=== PATIENT | female | born 1945 | race Caucasian/White ===

== ENCOUNTER 2018-07-14 11:29 | Observation (INO) | payer MEDICARE, OTHER ==
[~2018-07-14] VITALS: Ht 154.9 cm; Wt 87.1 kg
--- NOTE | 2018-07-14 13:18 | ERD ---
ER Documentation Chief Complaint Chief Complaint SENT BY PCP -- CHEST PAIN HPI This 72-year-old female with a history of hypertension, hyperlipidemia, diabetes who presents for evaluation of 2 days of intermittent chest pain. Patient went to an urgent care today, where they noted an abnormal EKG, which showed an inferior suppression in lead II, and recommended that she present to the ED for evaluation of this. Her pain lasts minutes and self resolves. She has no prior history of AR, and she states that she thinks that her heart was evaluated about 20 years ago but has not had any recent testing. She denies fever, she has had no leg swelling, no hemoptysis. ROS All systems reviewed and are negative except as per history of present illness. Allergies Allergies: Coded Allergies: No Known Allergies (Verified Allergy, 12/01/11) PER PT VERIFIED. PMhx/Soc History of Surgery: Yes (appendectomy, hysterectomy, 2 hernia repairs.) Anesthesia Reaction: No Hx Neurological Disorder: No Hx Respiratory Disorders: Yes (EPISODE OF ASTHMA) Hx Cardiac Disorders: Yes (HTN, cholesterol ) Hx Psychiatric Problems: No Hx Miscellaneous Medical Probl: Yes (DM, anemia, gastritis, high cholesterol ) Hx Alcohol Use: No Hx Substance Use: No Hx Tobacco Use: No Smoking Status: Never smoker Physical Exam Vitals Vital Signs Date Temp Pulse Resp B/P (MAP) Pulse Ox O2 O2 Flow FiO2 Time Delivery Rate 07/14/18 98.2 82 22 189/82 99 11:32 (117) Physical Exam Const: No acute distress Head: Atraumatic Eyes: Normal Conjunctiva ENT: Normal External Ears, Nose and Mouth. Neck: Full range of motion. No meningismus. Resp: Clear to auscultation bilaterally Cardio: Regular rate and rhythm, no murmurs Abd: Soft, non tender, non distended. Normal bowel sounds Skin: No petechiae or rashes Back: No midline or flank tenderness Ext: No cyanosis, or edema Neur: Awake and alert Psych: Normal Mood and Affect Result Diagram: 07/14/18 1251 07/14/18 1251 Results 24 hrs Laboratory Tests Test 07/14/18 12:51 White Blood Count 8.4 10^3/ul Red Blood Count 3.92 10^6/ul Hemoglobin 12.1 g/dl Hematocrit 36.7 % Mean Corpuscular Volume 93.6 fl Mean Corpuscular Hemoglobin 30.9 pg Mean Corpuscular Hemoglobin Concent 33.0 g/dl Red Cell Distribution Width 11.9 % Platelet Count 139 10^3/UL Mean Platelet Volume 12.6 fl Immature Granulocytes % 0.400 % Neutrophils % 62.5 % Lymphocytes % 24.9 % Monocytes % 6.6 % Eosinophils % 5.1 % Basophils % 0.5 % Nucleated Red Blood Cells % 0.0 /100WBC Immature Granulocytes # 0.030 10^3/ul Neutrophils # 5.2 10^3/ul Lymphocytes # 2.1 10^3/ul Monocytes # 0.6 10^3/ul Eosinophils # 0.4 10^3/ul Basophils # 0.0 10^3/ul Nucleated Red Blood Cells # 0.0 10^3/ul Sodium Level 139 mmol/L Potassium Level 4.5 mmol/L Chloride Level 102 mmol/L Carbon Dioxide Level 27 mmol/L Anion Gap 10 Blood Urea Nitrogen 24 mg/dl Creatinine 0.82 mg/dl Est Glomerular Filtrat Rate mL/min mL/min Glucose Level 335 mg/dl Calcium Level 9.5 mg/dl Total Bilirubin 0.2 mg/dl Direct Bilirubin 0.00 mg/dl Indirect Bilirubin 0.2 mg/dl Aspartate Amino Transf (AST/SGOT) 38 IU/L Alanine Aminotransferase (ALT/SGPT) 23 IU/L Alkaline Phosphatase 53 IU/L Troponin I < 0.012 ng/ml B-Type Natriuretic Peptide 331 PG/ML Total Protein 7.6 g/dl Albumin 3.9 g/dl Globulin 3.70 g/dl Albumin/Globulin Ratio 1.05 Procedures/MDM 72-year-old female presents for relation of chest pain. On exam patient is well-appearing nontoxic, her chest pain stabilized, I reviewed her EKG and also repeated here, given that I do not have a comparison EKG, it is not certain that this EKG abnormality is new. Thus, I considered acute coronary syndrome, her initial troponin was negative. She was noted to be hyperglycemic, with a blood sugar of 335, however she had no evidence of DKA. After discussion with the patient and her daughter, shared decision making was made to admit for further evaluation, the patient agreed to this. She will be admitted to observation. EKG: Rate/Rhythm: Normal Sinus Rhythm QRS, ST, T-waves: ST depression, approximately 1 mm and in lead II, otherwise no changes consistent w/ acute ischemia Impression: No evidence of ischemia or arrhythmia Accepting Care Team: Current data and ongoing care discussed. Primary: Etienne Consulting: None Outstanding Data: none Departure Diagnosis: Primary Impression: Chest pain Chest pain type: unspecified Qualified Codes: R07.9 - Chest pain, unspecified Condition: Stable FABIOLA BRODY MD Jul 14, 2018 13:18
[2018-07-14] MEDS ORDERED: LORAZEPAM 1 MG TAB PO ONE (14:30)
--- NOTE | 2018-07-14 14:38 | HP ---
Date/Time of Note Date/Time of Note DATE: 07/14/18 TIME: 14:38 Assessment/Plan VTE Prophylaxis Pharmacological prophylaxis: LMWH Lines/Catheters IV [facility] Saline Lock Assessment/Plan Hospital Course 72-year-old female with comorbidities including hypertension, diabetes mellitus, obesity, arthritis, dyslipidemia, and gastritis who went to the patient's primary care physician because of chest pain. The patient was referred to the emergency room by the patient's primary care physician. The patient will be admitted to inpatient setting for further treatment and evaluation. 1. Chest pain. -Etiology unclear. -Rule out ACS versus musculoskeletal versus others. Less likely PE, provided the patient has adequate oxygen saturation. -Continue aspirin. -Trend troponins. -Obtain cardiology consult -Obtain 2D echocardiogram to evaluate left ventricular ejection fraction and evaluate for any wall motion abnormalities. 2. Hypertension. -Will start the patient on appropriate antihypertensives. 3. Diabetes mellitus type 2. -Start the patient on sliding scale insulin along with pre-meal insulin and basal insulin. -Obtain hemoglobin A1c to evaluate the blood glucose control over the past few weeks. 3. Dyslipidemia. -Continue the patient on statins. 4. Gastritis -Continue the patient on proton pump inhibitors. 5. Obesity. -BMI of 32 . -Weight reduction would be advised. Plan: The patient will be admitted to inpatient telemetry floor. The patient will be started on a carbohydrate controlled as tolerated diet. The patient will be started on DVT prophylaxis and gastrointestinal prophylaxis. The patient will remain a full code. Activities will be as tolerated. The rest of the patient's management will be based on the clinical course, inputs from consultants, and the results of diagnostic studies. Based on the patient's clinical presentation, she most probably requires at least 1 midnight's stay for further management and evaluation of her clinical presentation. The patient was seen in collaboration with Dr. Clifton. Result Diagram: 07/14/18 1251 07/14/18 1251 Results 24hrs Laboratory Tests Test 07/14/18 12:51 White Blood Count 8.4 Red Blood Count 3.92 L Hemoglobin 12.1 Hematocrit 36.7 L Mean Corpuscular Volume 93.6 Mean Corpuscular Hemoglobin 30.9 Mean Corpuscular Hemoglobin Concent 33.0 Red Cell Distribution Width 11.9 Platelet Count 139 L Mean Platelet Volume 12.6 H Immature Granulocytes % 0.400 Neutrophils % 62.5 Lymphocytes % 24.9 Monocytes % 6.6 Eosinophils % 5.1 Basophils % 0.5 Nucleated Red Blood Cells % 0.0 Immature Granulocytes # 0.030 Neutrophils # 5.2 Lymphocytes # 2.1 Monocytes # 0.6 Eosinophils # 0.4 Basophils # 0.0 Nucleated Red Blood Cells # 0.0 Sodium Level 139 Potassium Level 4.5 Chloride Level 102 Carbon Dioxide Level 27 Anion Gap 10 Blood Urea Nitrogen 24 H Creatinine 0.82 Est Glomerular Filtrat Rate mL/min Glucose Level 335 H Calcium Level 9.5 Total Bilirubin 0.2 Direct Bilirubin 0.00 Indirect Bilirubin 0.2 Aspartate Amino Transf (AST/SGOT) 38 Alanine Aminotransferase (ALT/SGPT) 23 Alkaline Phosphatase 53 Troponin I < 0.012 B-Type Natriuretic Peptide 331 H Total Protein 7.6 Albumin 3.9 Globulin 3.70 H Albumin/Globulin Ratio 1.05 HPI/ROS Admit Date/Time Admit Date/Time Hx of Present Illness Reason for admission: Chest pain. Consultants 1. Mauricio Cat DO, Cardiology. This is a 72-year-old female with past medical history of hypertension, diabetes mellitus, obesity, arthritis, dyslipidemia, and gastritis. The patient came to the emergency room referred by her primary care physician because of chest pain. The patient verbalized that she had a episode of chest pain on 07/12/2018 that lasted for approximately half of the day. The patient had a second episode of chest pain on 07/14/2018. The patient verbalized that the the chest pain comes on randomly. The patient verbalized the chest pain as on the left side with no radiation. The patient denied any associated dyspnea, diaphoresis, nausea, or vomiting. The patient denied any fevers, chills, or cough. In the emergency room, the patient's initial set of troponins were negative. The patient had a blood pressure 189/82. The patient's chest x-ray was negative for any acute findings. The patient was anxious and therefore was given a single dose of Ativan. ROS Constitutional: no complaints Eyes: no complaints ENT: no complaints Respiratory: no complaints Cardiovascular: chest pain Gastrointestinal: no complaints Genitourinary: no complaints Musculoskeletal: no complaints Skin: no complaints Neurologic: no complaints Endocrine: no complaints Lymphatic: no complaints Psychological: anxiety Immunologic: no complaints PMH/Family/Social Past Medical History 1. Hypertension. 2. Diabetes mellitus type 2. 3. Obesity. 4. Arthritis. 5. Dyslipidemia. 6. Gastritis. Coded Allergies: No Known Allergies (Verified Allergy, Unknown, 07/14/18) PER PT VERIFIED. Past Surgical History 1. Appendectomy. 2. Hysterectomy with bilateral salpingo-oophorectomy. Social History The patient lives at home with her family. Alcohol Use: none Smoking Status: Never smoker Drug Use: none Exam/Review of Systems Vital Signs Vitals Vital Signs Date Temp Pulse Resp B/P (MAP) Pulse Ox O2 O2 Flow FiO2 Time Delivery Rate 07/14/18 79 18 158/63 98 Room Air 14:19 (94) 07/14/18 98.2 11:32 Exam Exam General: Obese, 72 year-old female lying in bed in no apparent distress. HEENT: Normocephalic, atraumatic. Eyes: Anicteric sclerae, conjunctivae clear. ENT: Nasal septum midline, oral mucosa moist. Neck supple. Respiratory: Bilaterally clear breath sounds. No use of accessory muscles of respiration. No adventitious breath sounds. Cardiovascular: S1, S2 heard. Regular rate and rhythm. Abdomen: Soft, nontender, and nondistended. Bowel sounds positive in all 4 quadrants. Genitourinary: Deferred. Extremities: No cyanosis, no clubbing, no edema. Peripheral pulses palpable. Neurologic: Cranial nerves II through XII grossly intact. The patient is awake, alert, and oriented. Skin: Normal skin turgor. No skin rashes. Additional Comments CXR IMPRESSION: No acute disease. Calcified aorta consistent with atherosclerotic disease. ELIJAH NAPOLES NP Jul 14, 2018 14:38
[2018-07-14] MEDS ORDERED: INSU100I12 SQ (14:47)
[2018-07-14] MEDS ORDERED: LISI40TA3 PO (14:47)
[2018-07-14] MEDS ORDERED: INSU300I SQ (14:48)
[2018-07-14] MEDS ORDERED: LORA10TA3 PO (14:49)
[2018-07-14] MEDS ORDERED: HYDR25TA6 PO (14:49)
[2018-07-14] MEDS ORDERED: GABA300C16 PO (14:50)
[2018-07-14] MEDS ORDERED: CHLO25TA2 PO (14:50)
[2018-07-14] MEDS ORDERED: ASPI81TA52 PO (14:51)
[2018-07-14] MEDS ORDERED: SIMV40TA2 PO (14:51)
[2018-07-14] MEDS ORDERED: NITROGLYCERIN (SL) 0.4 MG TAB SL PRN (15:00)
[2018-07-14] MEDS ORDERED: NACL 0.9% 3 ML SYG IV SCH (15:00)
[2018-07-14] MEDS ORDERED: LORAZEPAM 2 MG INJ IV PRN (15:00)
[2018-07-14] MEDS ORDERED: ACETAMINOPHEN 325 MG TAB PO PRN (15:00)
[2018-07-14] MEDS ORDERED: ASPIRIN 81 MG TAB PO ONE (15:30)
[2018-07-14] MEDS ORDERED: hydrALAzine 20 MG INJ IV PRN (15:30)
[2018-07-14] MEDS ORDERED: GLUCAGON 1 MG INJ IM PRN (16:30)
[2018-07-14] MEDS ORDERED: DEXTROSE 50% 50 ML SYRINGE IV PRN ×2 (16:30)
[2018-07-14] MEDS ORDERED: GLUCOSE GEL 15 GRAM TUBE PO PRN ×2 (16:30)
[2018-07-14] MEDS ORDERED: GLUCOSE GEL 15 GRAM TUBE BUCCAL PRN (16:30)
[2018-07-14 17:02] VITALS: Ht 154.9 cm; Wt 87.1 kg
--- NOTE | 2018-07-14 17:27 | CONS ---
Assessment/Plan Assessment/Plan Hospital Course (Demo Recall) Chest pain Abnormal ECG Diabetes Hypertension Dyslipidemia -Patient presents with intermittent chest pain off and on over the past few days which is nonexertional with no associated shortness of breath. -Initial cardiac enzymes are negative, ECG with ST segment abnormalities -We will obtain serial cardiac enzymes, echocardiogram, continue aspirin and statin therapy, blood pressure control -Patient with atypical symptoms but abnormal ECG, would consider further ischemic workup Consultation Date/Type/Reason Admit Date/Time Type of Consult Cardiology Reason for Consultation Chest pain Date/Time of Note DATE: 07/14/18 TIME: 17:21 Hx of Present Illness This is an 82-year-old female with past medical history of diabetes, hypertension, presents with chest pain. Chest pain happens at sporadic times over the past few days. Exertion does not worsen or improve symptoms. She denies any shortness of breath and it happens. She has a hard time describing the type of chest pain. She points to point to the left side of her chest and her left shoulder. She denies any chest pain currently. Patient denies any cardiac history. She denies any fevers or chills. 12 point review of systems was performed with all pertinent positives and negatives mentioned above and all else is negative Past Medical History Medical History: diabetes, high cholesterol, hypertension Home Meds Reported Medications Aspirin (Low Dose Aspirin) 81 Mg Tablet.dr, 81 MG PO DAILY, #30 TAB 07/14/18 Simvastatin* (Zocor*) 40 Mg Tablet, 40 MG PO QHS, #30 TAB 07/14/18 Gabapentin* (Gabapentin*) 300 Mg Capsule, 300 MG PO QHS, #60 CAP 07/14/18 Chlorthalidone* (Chlorthalidone*) 25 Mg Tablet, 25 MG PO DAILY, TAB 07/14/18 Loratadine* (Loratadine*) 10 Mg Tablet, 10 MG PO DAILY, #30 TAB 07/14/18 Hydrochlorothiazide* (Hydrochlorothiazide*) 25 Mg Tab, 25 MG PO DAILY, #30 TAB 07/14/18 Insulin Glargine,Hum.rec.anlog (Víctor oClby) 300 Unit/1 Ml Insuln.pen, 65 UNIT SQ QHS, EA 07/14/18 Lisinopril* (Lisinopril*) 40 Mg Tablet, 40 MG PO DAILY, #30 TAB 07/14/18 Insulin Lispro (Humalog Kwikpen U-100) 100 Unit/1 Ml Insuln.pen, 55 UNIT SQ BID, EA 07/14/18 Medications Current Medications IV Flush (NS 3 ml) 3 ml PER PROTOCOL IV ; Start 07/14/18 at 15:00 Lorazepam (Ativan) 0.5 mg Q6H PRN IV .ANXIETY; Start 07/14/18 at 15:00 Nitroglycerin (Nitroglycerin (Sl Tab) 0.4 Mg) 1 tab Q5M PRN SL .CHEST PAIN; Start 07/14/18 at 15:00 Acetaminophen (Tylenol Tab) 650 mg Q6H PRN PO .PAIN 1-3 OR TEMP; Start 07/14/18 at 15:00 Enoxaparin Sodium (Lovenox) 40 mg DAILY SC ; Start 07/15/18 at 09:00 Aspirin (Halfprin) 81 mg DAILY PO ; Start 07/15/18 at 09:00 Lisinopril (Zestril) 5 mg DAILY PO ; Start 07/15/18 at 09:00 Atorvastatin Calcium (Lipitor) 40 mg HS PO ; Start 07/14/18 at 21:00 Insulin Glargine (Lantus) 15 units DAILY@2000 SC ; Start 07/14/18 at 20:00 Insulin Aspart (Novolog Insulin Pen) 5 unit WITH MEALS SC ; Start 07/14/18 at 18:00 Insulin Aspart (Novolog Insulin Pen) NOVOLOG *MILD* ALGORITHM WITH MEALS BEDTIME SC ; Start 07/14/18 at 18:00 Hydralazine HCl (Apresoline) 10 mg Q6H PRN IV SBP>160; Start 07/14/18 at 15:30 Pantoprazole (Protonix Tab) 40 mg DAILY@06 PO ; Start 07/15/18 at 06:00 Miscellaneous Information 1 ea NOTE XX ; Start 07/14/18 at 16:30 Glucose (Glutose) 15 gm Q15M PRN PO DECREASED GLUCOSE; Start 07/14/18 at 16:30 Glucose (Glutose) 22.5 gm Q15M PRN PO DECREASED GLUCOSE; Start 07/14/18 at 16:30 Dextrose (D50w Syringe) 25 ml Q15M PRN IV DECREASED GLUCOSE; Start 07/14/18 at 16:30 Dextrose (D50w Syringe) 50 ml Q15M PRN IV DECREASED GLUCOSE; Start 07/14/18 at 16:30 Glucagon (Glucagen) 1 mg Q15M PRN IM DECREASED GLUCOSE; Start 07/14/18 at 16:30 Glucose (Glutose) 15 gm Q15M PRN BUCCAL DECREASED GLUCOSE; Start 07/14/18 at 16:30 Allergies: Coded Allergies: No Known Allergies (Verified Allergy, Unknown, 07/14/18) PER PT VERIFIED. Past Surgical History Past Surgical Hx: other (Hernia surgery) Family History Significant Family History: no pertinent family hx Social History Alcohol Use: none Smoking Status: Never smoker Drug Use: none Exam/Review of Systems Vital Signs Vitals Vital Signs Date Temp Pulse Resp B/P (MAP) Pulse Ox O2 O2 Flow FiO2 Time Delivery Rate 07/14/18 98.5 84 24 156/64 98 Room Air 16:42 (94) Exam Constitutional: alert, oriented (No apparent distress) Head: normocephalic Respiratory: clear to auscultation, normal air movement Cardiovascular: regular rate and rhythm (S1-S2 heard) Gastrointestinal: soft, non-tender, bowel sounds Extremities: other (No significant edema) Labs Result Diagram: 07/14/18 1251 07/14/18 1251 Results 24hrs Laboratory Tests Test 07/14/18 12:51 White Blood Count 8.4 Red Blood Count 3.92 L Hemoglobin 12.1 Hematocrit 36.7 L Mean Corpuscular Volume 93.6 Mean Corpuscular Hemoglobin 30.9 Mean Corpuscular Hemoglobin Concent 33.0 Red Cell Distribution Width 11.9 Platelet Count 139 L Mean Platelet Volume 12.6 H Immature Granulocytes % 0.400 Neutrophils % 62.5 Lymphocytes % 24.9 Monocytes % 6.6 Eosinophils % 5.1 Basophils % 0.5 Nucleated Red Blood Cells % 0.0 Immature Granulocytes # 0.030 Neutrophils # 5.2 Lymphocytes # 2.1 Monocytes # 0.6 Eosinophils # 0.4 Basophils # 0.0 Nucleated Red Blood Cells # 0.0 Sodium Level 139 Potassium Level 4.5 Chloride Level 102 Carbon Dioxide Level 27 Anion Gap 10 Blood Urea Nitrogen 24 H Creatinine 0.82 Est Glomerular Filtrat Rate mL/min Glucose Level 335 H Calcium Level 9.5 Total Bilirubin 0.2 Direct Bilirubin 0.00 Indirect Bilirubin 0.2 Aspartate Amino Transf (AST/SGOT) 38 Alanine Aminotransferase (ALT/SGPT) 23 Alkaline Phosphatase 53 Troponin I < 0.012 B-Type Natriuretic Peptide 331 H Total Protein 7.6 Albumin 3.9 Globulin 3.70 H Albumin/Globulin Ratio 1.05 Imaging Imaging ECG demonstrates sinus rhythm 88 bpm, poor R wave progression, ST abnormalities in inferior and lateral leads Medications Medications Current Medications IV Flush (NS 3 ml) 3 ml PER PROTOCOL IV ; Start 07/14/18 at 15:00 Lorazepam (Ativan) 0.5 mg Q6H PRN IV .ANXIETY; Start 07/14/18 at 15:00 Nitroglycerin (Nitroglycerin (Sl Tab) 0.4 Mg) 1 tab Q5M PRN SL .CHEST PAIN; Start 07/14/18 at 15:00 Acetaminophen (Tylenol Tab) 650 mg Q6H PRN PO .PAIN 1-3 OR TEMP; Start 07/14/18 at 15:00 Enoxaparin Sodium (Lovenox) 40 mg DAILY SC ; Start 07/15/18 at 09:00 Aspirin (Halfprin) 81 mg DAILY PO ; Start 07/15/18 at 09:00 Lisinopril (Zestril) 5 mg DAILY PO ; Start 07/15/18 at 09:00 Atorvastatin Calcium (Lipitor) 40 mg HS PO ; Start 07/14/18 at 21:00 Insulin Glargine (Lantus) 15 units DAILY@2000 SC ; Start 07/14/18 at 20:00 Insulin Aspart (Novolog Insulin Pen) 5 unit WITH MEALS SC ; Start 07/14/18 at 18:00 Insulin Aspart (Novolog Insulin Pen) NOVOLOG *MILD* ALGORITHM WITH MEALS BEDTIME SC ; Start 07/14/18 at 18:00 Hydralazine HCl (Apresoline) 10 mg Q6H PRN IV SBP>160; Start 07/14/18 at 15:30 Pantoprazole (Protonix Tab) 40 mg DAILY@06 PO ; Start 07/15/18 at 06:00 Miscellaneous Information 1 ea NOTE XX ; Start 07/14/18 at 16:30 Glucose (Glutose) 15 gm Q15M PRN PO DECREASED GLUCOSE; Start 07/14/18 at 16:30 Glucose (Glutose) 22.5 gm Q15M PRN PO DECREASED GLUCOSE; Start 07/14/18 at 16:30 Dextrose (D50w Syringe) 25 ml Q15M PRN IV DECREASED GLUCOSE; Start 07/14/18 at 16:30 Dextrose (D50w Syringe) 50 ml Q15M PRN IV DECREASED GLUCOSE; Start 07/14/18 at 16:30 Glucagon (Glucagen) 1 mg Q15M PRN IM DECREASED GLUCOSE; Start 07/14/18 at 16:30 Glucose (Glutose) 15 gm Q15M PRN BUCCAL DECREASED GLUCOSE; Start 07/14/18 at 16:30 Mauricio Cat DO Jul 14, 2018 17:27
[2018-07-14 17:30] VITALS: BP 154/70; PULSE 80; RESP 20
--- NOTE | 2018-07-14 17:33 | RADRPT ---
Echocardiogram Report Patient Name: Eunice MARIEnt ID: [id number] : 1945 (72y 10m)Study Date: 07/14/2018 3:17:50 PM Gender: FAccession #: [id number] Tech: Maryanne [facility] Location: [facility] Ref.Physician: ELIJAH NAPOLES Height(Cm): BSA: Weight(Kg): Quality: AdequateAccount #: Procedures: Echocardiographic Report: Transthoracic echocardiogram with complete 2D, M-Mode, and doppler examination. Indications: Chest Pain. Measurements: 2D/M Mode Doppler Measurement Value Normal Range Measurement Value Normal Range LVIDd 2D 4.2 [ 3.8 - 5.2 ] cm AV Peak Wilbur 1.5 [ 100.0 - 170.0 ] cm/sec LVIDs 2D 2.7 [ 2.2 - 3.5 ] cm AV Peak PG 9.0 [ 2.0 - 9.0 ] mmHg LVPWd 2D 1.1 [ 0.6 - 0.9 ] cm LVOT Peak Wilbur 1.5 [ 70.0 - 110.0 ] cm/sec IVSd 2D 1.1 [ 0.6 - 0.9 ] cm LVOT Peak PG 9.0 [ 2.0 - 6.0 ] mmHg IVS/LVPW 2D 1.0 ratio MV E Peak Wilbur 1.2 [ 60.0 - 130.0 ] cm/sec AoR Diam 2D 2.6 [ 2.3 - 3.1 ] cm MV A Peak Wilbur 1.4 [ 100.0 - 120.0 ] cm/sec LA/Ao 2D 1 ratio MV E/A 0.8 [ 0.8 - 1.5 ] ratio LA Dimen 2D 3.6 [ 2.7 - 3.8 ] cm MV Decel Time 130 [ 104 - 258 ] msec MV E/A 0.8 [ 0.8 - 1.5 ] ratio TR Peak Wilbur 2.9 [ 100.0 - 280.0 ] cm/sec TR Peak PG 33.0 mmHg RVSP 36.0 [ 10.0 - 36.0 ] mmHg Findings: Left Ventricle: Normal left ventricular systolic function. Normal left ventricular cavity size. Mild concentric left ventricular hypertrophy. Ejection fraction is visually estimated at 60 %. Tissue Doppler/Mitral Doppler indices are consistent with impaired relaxation (Stage I diastolic dysfunction). Right Ventricle: Normal right ventricular size. Normal right ventricular systolic function. Left Atrium: The left atrium is normal in size. Right Atrium: The right atrium is normal in size. Mitral Valve: Mild mitral leaflet calcification. Moderate mitral annular calcification. Trace mitral regurgitation. Mild mitral stenosis. MeanPG 5.00 mmHg. Aortic Valve: No hemodynamically significant aortic stenosis by doppler. Aortic cusps appear mildly calcified. Tricuspid Valve: Normal appearance of the tricuspid valve. Estimated peak PA systolic pressure 36 mmHg. There is mild tricuspid regurgitation. Pericardium: Normal pericardium with no significant pericardial effusion. Aorta: Normal aortic root. IVC: Normal size and normal respiratory collapse consistent with normal right atrial pressure. Conclusions: Normal left ventricular systolic function. Normal left ventricular cavity size. Mild concentric left ventricular hypertrophy. Ejection fraction is visually estimated at 60 %. Tissue Doppler/Mitral Doppler indices are consistent with impaired relaxation (Stage I diastolic dysfunction). Normal right ventricular size. Normal right ventricular systolic function. The left atrium is normal in size. The right atrium is normal in size. Mild mitral leaflet calcification. Mild mitral stenosis. No hemodynamically significant aortic stenosis by doppler. Estimated peak PA systolic pressure 36 mmHg. There is mild tricuspid regurgitation. Normal pericardium with no significant pericardial effusion. Electronically Signed By: Mauricio Cat 2018-07-14 17:32:11 PDT
[2018-07-14] MEDS: INSULIN ASPART [NOVOLOG] 3 ML PEN SC SCH ×3 (18:14→21:08)
[2018-07-14 20:00] VITALS: BP 133/63; PULSE 84; PULSE 86; RESP 20
[2018-07-14] MEDS ORDERED: INSULIN GLARGINE [LANTus] (100 UNITS/ML) SYG SC SCH (20:00)
[2018-07-14] MEDS ORDERED: INSULIN ASPART [NOVOLOG] 3 ML PEN SC ONE (21:00)
[2018-07-14] MEDS ORDERED: ATORVASTATIN 40 MG TAB PO SCH (21:00)
[2018-07-14] MEDS ORDERED: ACCU-CHEK XX ONE (23:00)
[2018-07-15] VITALS (8 sets, daily range): BP systolic 125–151; BP diastolic 62–68; PULSE 67–80; RESP 18–20
[2018-07-15] MEDS ORDERED: INSULIN ASPART [NOVOLOG] 3 ML PEN SC ONE
[2018-07-15] MEDS ORDERED: ACCU-CHEK XX ONE (02:00)
[2018-07-15] MEDS ORDERED: PANTOPRAZOLE (EC) 40 MG TAB PO SCH (06:00)
[2018-07-15] MEDS: INSULIN ASPART [NOVOLOG] 3 ML PEN SC SCH ×6 (07:59→17:30)
[2018-07-15] MEDS ORDERED: LISINOPRIL 5 MG TAB PO SCH (09:00)
[2018-07-15] MEDS ORDERED: ASPIRIN (EC) 81 MG TAB PO SCH (09:00)
[2018-07-15] MEDS ORDERED: ENOXAPARIN 40 MG/0.4 ML SYG SC SCH (09:00)
[2018-07-15] MEDS ORDERED: REGADENOSON 0.4 MG/5 ML SYG ONE (12:25)
[2018-07-15] MEDS ORDERED: MAGNESIUM SULFATE 3 GM in DEXTROSE 5% 100 ML IVPB ONE (13:00)
--- NOTE | 2018-07-15 14:48 | PDOCDIS ---
Discharge Instructions CONDITION [id number] Patient Condition: [id number] Stable HOME CARE INSTRUCTIONS: [id number] Diet Instructions: [id number] Low Fat /Cholesterol [id number] Special Diet: [id number] Low carbohydrate FOLLOW UP/APPOINTMENTS Follow-up Plan Follow-up with your primary care physician in 1 week. OTHER ORDERS: Other Orders: 1. Resume home medications. 2. Follow a low-cholesterol, low carbohydrate diet. 3. Resume activities as tolerated. 4. Follow-up with your primary care physician in 1 week. 5. Please go to the nearest emergency room if you have any chest pain, significant shortness of breath, or any other unusual signs/symptoms. ELIJAH NAPOLES NP Jul 15, 2018 14:48
--- NOTE | 2018-07-15 14:56 | DS ---
Date/Time of Note Date/Time of Note DATE: 07/15/18 TIME: 14:49 Discharge Summary Admission/Discharge Info Admit Date/Time Jul 14, 2018 at 13:45 Discharge Date/Time Discharge Diagnosis 1. Atypical chest pain. 2. Hypertension. 3. Diabetes mellitus type 2. Hemoglobin A1c 8.2. 4. Dyslipidemia. 5. Gastritis 6. Obesity. BMI more than 36 kg/m. Patient Condition: Stable Consults 1. Mauricio Cat DO, Cardiology. Procedures 2D Echocardiogram Conclusions: Normal left ventricular systolic function. Normal left ventricular cavity size. Mild concentric left ventricular hypertrophy. Ejection fraction is visually estimated at 60 %. Tissue Doppler/Mitral Doppler indices are consistent with impaired relaxation (Stage I diastolic dysfunction). Normal right ventricular size. Normal right ventricular systolic function. The left atrium is normal in size. The right atrium is normal in size. Mild mitral leaflet calcification. Mild mitral stenosis. No hemodynamically significant aortic stenosis by Doppler. Estimated peak PA systolic pressure 36 mmHg. There is mild tricuspid regurgitation. Normal pericardium with no significant pericardial effusion. Lexiscan Myocardial Perfusion Study IMPRESSION: 1. No evidence of stress-induced ischemia. 2. No wall motion abnormalities. 3. The left ventricle ejection fraction at stress is 51%. Hx of Present Illness Reason for admission: Chest pain. Consultants 1. Mauricio Cat DO, Cardiology. This is a 72-year-old female with past medical history of hypertension, diabetes mellitus, obesity, arthritis, dyslipidemia, and gastritis. The patient came to the emergency room referred by her primary care physician because of chest pain. The patient verbalized that she had a episode of chest pain on 07/12/2018 that lasted for approximately half of the day. The patient had a second episode of chest pain on 07/14/2018. The patient verbalized that the the chest pain comes on randomly. The patient verbalized the chest pain as on the left side with no radiation. The patient denied any associated dyspnea, diaphoresis, nausea, or vomiting. The patient denied any fevers, chills, or cough. In the emergency room, the patient's initial set of troponins were negative. The patient had a blood pressure 189/82. The patient's chest x-ray was negative for any acute findings. The patient was anxious and therefore was given a single dose of Ativan. Hospital Course The patient was admitted to inpatient setting. A cardiology consult was obt ained. Serial troponins were obtained. A 2D echocardiogram was done. The patient's 2D echocardiogram showed preserved left ventricle ejection fraction. The patient underwent a nuclear medicine cardiac stress test that was negative for any reversible perfusion defects. The patient's chest pain could have been most probably musculoskeletal in origin. The patient has underlying essential hypertension. The patient was maintained on antihypertensives for the same. The patient has underlying diabetes mellitus type 2. The patient's hemoglobin A1c was found to be 8.2. The patient was maintained on sliding scale insulin along with pre-meal insulin and basal insulin. Patient has a underlying dyslipidemia. She was maintained on statins for the same. The patient has a history of gastritis. The patient was maintained on proton pump inhibitors. The patient is obese. The patient did have a BMI of more than 36 kg or menisci. The patient was advised on weight reduction. Patient had a stable hospital course. The patient is ruled out for any underlying overall syndrome. The patient was cleared by cardiology to be discharged home. The patient denied any complaints at the time of discharge. Discharge Instructions 1. Resume home medications. 2. Follow a low-cholesterol, low carbohydrate diet. 3. Resume activities as tolerated. 4. Follow-up with your primary care physician in 1 week. 5. Please go to the nearest emergency room if you have any chest pain, significant shortness of breath, or any other unusual signs/symptoms. The patient verbalized understanding of her discharge instructions. At this time I would like to thank Dr. Cat for seeing the patient and providing clinical recommendations. The patient was seen in collaboration with Dr. Clifton. Home Meds Reported Medications Aspirin (Low Dose Aspirin) 81 Mg Tablet., 81 MG PO DAILY, #30 TAB 07/14/18 Simvastatin* (Zocor*) 40 Mg Tablet, 40 MG PO QHS, #30 TAB 07/14/18 Gabapentin* (Gabapentin*) 300 Mg Capsule, 300 MG PO QHS, #60 CAP 07/14/18 Chlorthalidone* (Chlorthalidone*) 25 Mg Tablet, 25 MG PO DAILY, TAB 07/14/18 Loratadine* (Loratadine*) 10 Mg Tablet, 10 MG PO DAILY, #30 TAB 07/14/18 Hydrochlorothiazide* (Hydrochlorothiazide*) 25 Mg Tab, 25 MG PO DAILY, #30 TAB 07/14/18 Insulin Glargine,Hum.rec.anlog (Víctor Colby) 300 Unit/1 Ml Insuln.pen, 65 UNIT SQ QHS, EA 07/14/18 Lisinopril* (Lisinopril*) 40 Mg Tablet, 40 MG PO DAILY, #30 TAB 07/14/18 Insulin Lispro (Humalog Kwikpen U-100) 100 Unit/1 Ml Insuln.pen, 55 UNIT SQ BID, EA 07/14/18 Follow-up Plan Follow-up with your primary care physician in 1 week. Primary Care Provider Care Physician No Primary Time spent on discharge: > 30 minutes Pending Labs Laboratory Tests Test 07/14/18 17:59 07/14/18 18:07 07/14/18 20:40 07/14/18 23:35 Creatine 57 Kinase IU/L (23-200) Creatine Kinase 2.5 Index Creatinine 1.44 Kinase MB ng/ml (0.0-2.4) (Mass) Troponin I < 0.012 ng/ml (0.000-0. 120) Bedside 292 331 369 Glucose mg/dL (70-220) mg/dL (70-220) mg/dL (70-220) Test 07/15/18 00:20 07/15/18 02:39 07/15/18 05:22 07/15/18 07:55 Creatine 53 Kinase IU/L (23-200) Creatine Kinase 2.5 Index Creatinine 1.33 Kinase MB ng/ml (0.0-2.4) (Mass) Troponin I < 0.012 ng/ml (0.000-0. 120) Bedside 332 277 Glucose mg/dL (70-220) mg/dL (70-220) White Blood 6.4 Count 10^3/ul (4.8-1 0.8) Red Blood 3.94 Count 10^6/ul (4.20- 5.40) Hemoglobin 12.0 g/dl (12.0-16. 0) Hematocrit 36.9 % (37.0-47.0) Mean 93.7 Corpuscular fl (82.0-101.0 Volume ) Mean 30.5 Corpuscular pg (29.0-33.0) Hemoglobin Mean 32.5 Corpuscular g/dl (32.0-37. Hemoglobin Conc 0) ent Red Cell 11.9 Distribution % (11.5-14.5) Width Platelet Count 135 10^3/UL (140-4 15) Mean Platelet 12.1 Volume fl (7.4-10.4) Immature 0.300 Granulocytes % % (0.001-0.429 ) Neutrophils % 55.1 % (39.0-77.0) Lymphocytes % 30.7 % (15.0-51.0) Monocytes % 7.6 % (0.0-11.0) Eosinophils % 5.8 % (0.0-7.0) Basophils % 0.5 % (0.0-2.0) Nucleated Red 0.0 Blood Cells % /100WBC (0.0-0 .0) Immature 0.020 Granulocytes # 10^3/ul (0.0-0 .031) Neutrophils # 3.5 10^3/ul (1.6-7 .5) Lymphocytes # 2.0 10^3/ul (0.8-2 .9) Monocytes # 0.5 10^3/ul (0.3-0 .9) Eosinophils # 0.4 10^3/ul (0.0-0 .5) Basophils # 0.0 10^3/ul (0.0-0 .1) Nucleated Red 0.0 Blood Cells # 10^3/ul (0.0-0 .0) Sodium Level 139 mmol/L (135-14 4) Potassium 4.3 Level mmol/L (3.5-5. 1) Chloride Level 104 mmol/L (97-110 ) Carbon Dioxide 29 Level mmol/L (21-31) Anion Gap 6 (5-13) Blood Urea 22 Nitrogen mg/dl (7-20) Creatinine 0.83 mg/dl (0.44-1. 00) Est Glomerular mL/min (>60) Filtrat Rate mL/min Glucose Level 307 mg/dl (70-220) Calcium Level 9.7 mg/dl (8.4-10. 2) Phosphorus 4.0 Level mg/dl (2.5-4.9 ) Magnesium 1.3 Level mg/dl (1.7-2.5 ) Total 0.2 Bilirubin mg/dl (0.2-1.3 ) Direct 0.00 Bilirubin mg/dl (0.00-0. 20) Indirect 0.2 Bilirubin mg/dl (0-1.1) Aspartate Amino 22 Transf (AST/SGO IU/L (15-46) T) Alanine 24 Aminotransferas IU/L (13-69) e (ALT/SGPT) Alkaline 53 Phosphatase IU/L (42-121) Total Protein 7.0 g/dl (6.1-8.1) Albumin 3.5 g/dl (3.3-4.9) Globulin 3.50 g/dl (1.3-3.2) Albumin/Globuli 1.00 n Ratio Triglycerides 152 Level mg/dl (0-149) Cholesterol 170 Level mg/dl (100-200 ) LDL 96 mg/dl Cholesterol, Calculated HDL 44 Cholesterol mg/dl (33-92) Cholesterol/HDL 3.8 RATIO Ratio Test 07/15/18 11:39 Bedside 205 Glucose mg/dL (70-220) ELIJAH NAPOLES NP Jul 15, 2018 14:56
--- NOTE | 2018-07-15 16:48 | CONS ---
Assessment/Plan Assessment/Plan Hospital Course (Demo Recall) Chest pain Abnormal ECG Preserved ejection fraction No ischemia nuclear cardiac perfusion study 07/15/2018 Diabetes Hypertension Dyslipidemia -Patient presents with intermittent chest pain off and on over the past few days which is nonexertional with no associated shortness of breath. -Serial cardiac enzymes negative, nuclear cardiac perfusion study performed today with no evidence of ischemia -Continue aspirin and statin therapy, blood pressure control -DC planning Consultation Date/Type/Reason Admit Date/Time Jul 14, 2018 at 13:45 Initial Consult Date Type of Consult Cardiology Date/Time of Note DATE: 07/15/18 TIME: 16:46 24 HR Interval Summary Free Text/Dictation Denies further chest pain. Denies shortness of breath or palpitations Exam/Review of Systems Vital Signs Vitals Vital Signs Date Temp Pulse Resp B/P (MAP) Pulse Ox O2 O2 Flow FiO2 Time Delivery Rate 07/15/18 76 16:11 07/15/18 98.2 18 151/68 94 15:30 (95) 07/15/18 Room Air 00:00 Intake and Output 07/14/18 07/14/18 07/15/18 1515:00 23:00 07:00 IntakeIntake Total 200 ml OutputOutput Total 1 ml BalanceBalance 199 ml Exam Constitutional: alert, oriented (No apparent distress) Head: normocephalic Respiratory: clear to auscultation, normal air movement Cardiovascular: regular rate and rhythm (S1-S2 heard) Gastrointestinal: soft, non-tender, bowel sounds Extremities: other (No significant edema) Labs Result Diagram: 07/15/1852107/15/18521 Results 24hrs Laboratory Tests Test 07/14/18 17:59 07/14/18 18:07 07/14/18 20:40 07/14/18 23:35 Creatine Kinase 57 Creatine Kinase 2.5 Index Creatinine Kinase MB 1.44 (Mass) Troponin I < 0.012 Bedside Glucose 292 H 331 H 369 H Test 07/15/18 00:20 07/15/18 02:39 07/15/18 05:22 07/15/18 07:55 Creatine Kinase 53 Creatine Kinase 2.5 Index Creatinine Kinase MB 1.33 (Mass) Troponin I < 0.012 Bedside Glucose 332 H 277 H White Blood Count 6.4 # Red Blood Count 3.94 L Hemoglobin 12.0 Hematocrit 36.9 L Mean Corpuscular 93.7 Volume Mean Corpuscular 30.5 Hemoglobin Mean Corpuscular 32.5 Hemoglobin Concent Red Cell 11.9 Distribution Width Platelet Count 135 L Mean Platelet Volume 12.1 H Immature 0.300 Granulocytes % Neutrophils % 55.1 Lymphocytes % 30.7 Monocytes % 7.6 Eosinophils % 5.8 Basophils % 0.5 Nucleated Red Blood 0.0 Cells % Immature 0.020 Granulocytes # Neutrophils # 3.5 Lymphocytes # 2.0 Monocytes # 0.5 Eosinophils # 0.4 Basophils # 0.0 Nucleated Red Blood 0.0 Cells # Sodium Level 139 Potassium Level 4.3 Chloride Level 104 Carbon Dioxide Level 29 Anion Gap 6 Blood Urea Nitrogen 22 H Creatinine 0.83 Est Glomerular Filtrat Rate mL/min Glucose Level 307 H Calcium Level 9.7 Phosphorus Level 4.0 Magnesium Level 1.3 L Total Bilirubin 0.2 Direct Bilirubin 0.00 Indirect Bilirubin 0.2 Aspartate Amino 22 Transf (AST/SGOT) Alanine 24 Aminotransferase (AL T/SGPT) Alkaline Phosphatase 53 Total Protein 7.0 Albumin 3.5 Globulin 3.50 H Albumin/Globulin 1.00 Ratio Triglycerides Level 152 H Cholesterol Level 170 LDL Cholesterol, 96 Calculated HDL Cholesterol 44 Cholesterol/HDL 3.8 Ratio Test 07/15/18 11:39 Bedside Glucose 205 Medications Medications Current Medications IV Flush (NS 3 ml) 3 ml PER PROTOCOL IV ; Start 07/14/18 at 15:00 Lorazepam (Ativan) 0.5 mg Q6H PRN IV .ANXIETY; Start 07/14/18 at 15:00 Nitroglycerin (Nitroglycerin (Sl Tab) 0.4 Mg) 1 tab Q5M PRN SL .CHEST PAIN; Start 07/14/18 at 15:00 Acetaminophen (Tylenol Tab) 650 mg Q6H PRN PO .PAIN 1-3 OR TEMP; Start 07/14/18 at 15:00 Enoxaparin Sodium (Lovenox) 40 mg DAILY SC Last administered on 07/15/18at 08:42; Admin Dose 40 MG; Start 07/15/18 at 09:00 Aspirin (Halfprin) 81 mg DAILY PO Last administered on 07/15/18at 08:39; Admin Dose 81 MG; Start 07/15/18 at 09:00 Lisinopril (Zestril) 5 mg DAILY PO Last administered on 07/15/18at 08:40; Admin Dose 5 MG; Start 07/15/18 at 09:00 Atorvastatin Calcium (Lipitor) 40 mg HS PO Last administered on 07/14/18at 20:46; Admin Dose 40 MG; Start 07/14/18 at 21:00 Insulin Glargine (Lantus) 15 units DAILY@2000 SC Last administered on 07/14/18at 21:08; Admin Dose 15 UNITS; Start 07/14/18 at 20:00 Insulin Aspart (Novolog Insulin Pen) 5 unit WITH MEALS SC Last administered on 07/14/18at 18:14; Admin Dose 5 UNIT; Start 07/14/18 at 18:00 Insulin Aspart (Novolog Insulin Pen) NOVOLOG *MILD* ALGORITHM WITH MEALS BEDTIME SC Last administered on 07/15/18at 11:42; Admin Dose 2 UNIT; Start 07/14 at 18:00 Hydralazine HCl (Apresoline) 10 mg Q6H PRN IV SBP>160; Start 07/14/18 at 15:30 Pantoprazole (Protonix Tab) 40 mg DAILY@06 PO Last administered on 07/15/18at 05:23; Admin Dose 40 MG; Start 07/15/18 at 06:00 Miscellaneous Information 1 ea NOTE XX ; Start 07/14/18 at 16:30 Glucose (Glutose) 15 gm Q15M PRN PO DECREASED GLUCOSE; Start 07/14/18 at 16:30 Glucose (Glutose) 22.5 gm Q15M PRN PO DECREASED GLUCOSE; Start 07/14/18 at 16:30 Dextrose (D50w Syringe) 25 ml Q15M PRN IV DECREASED GLUCOSE; Start 07/14/18 at 16:30 Dextrose (D50w Syringe) 50 ml Q15M PRN IV DECREASED GLUCOSE; Start 07/14/18 at 16:30 Glucagon (Glucagen) 1 mg Q15M PRN IM DECREASED GLUCOSE; Start 07/14/18 at 16:30 Glucose (Glutose) 15 gm Q15M PRN BUCCAL DECREASED GLUCOSE; Start 07/14/18 at 16:30 Mauricio Cat DO Jul 15, 2018 16:48
== END 2018-07-15 18:39 | disposition home or self-care (01) ==
LOC: E/R 11:29 → 6WM 13:45
PROVIDERS: ADMIT Internal Medicine; ATTEND Internal Medicine
DX: R07.9 Chest pain, unspecified (principal); I10 Essential (primary) hypertension; E11.9 Type 2 diabetes mellitus without complications; E78.5 Hyperlipidemia, unspecified; K29.70 Gastritis, unspecified, without bleeding; E66.9 Obesity, unspecified; R94.31 Abnormal electrocardiogram [ECG] [EKG]; Z79.4 Long term (current) use of insulin; R06.02 Shortness of breath
CPT/HCPCS: 71045; 78452; 80053; 80061; 82550; 82553; 82962; 83036; 83735; 83880; 84100; 84439; 84443; 84484; 85025; 93005; 93017; 93306; A9500; A9505; G0378; J1650; J1815; J2785; J3475